=== PATIENT | male | born 1960 | race Caucasian/White ===

== ENCOUNTER 2018-08-23 13:08 | Outpatient (CLI) | payer OTHER | END 2018-08-23 13:09 | disposition home or self-care (01) | LOC: C.PAT 13:08 | DX: L98.9 Disorder of the skin and subcutaneous tissue, unspecified (principal) ==

== ENCOUNTER 2018-08-24 11:28 | Day surgery (SDC) | payer OTHER ==
[2018-08-23 13:16] VITALS: BMI 31.6
[2018-08-24 12:02] VITALS: RESP 18
[2018-08-24] MEDS ORDERED: Lidocaine/Epinephrine 1% 1:100000 10 ML IJ ONE (12:59)
--- NOTE | 2018-08-24 13:23 | PCM.SURG1 ---
Surgeon's Initial Post Op Note - Surgeon's Notes Surgeon: Davie Galeas Microfiche Duplicator: none Type of Anesthesia: Local Anesthesia Administered By: Davie Galeas Pre-Operative Diagnosis: scalp mass Operative Findings: pigmented subcuatneous mass Post-Operative Diagnosis: scalp mass Operation Performed: excision scalp mass Specimen/Specimens Removed: scalp mass Estimated Blood Loss: EBL {In ML}: 1 Blood Products Given: N/A Drains Used: No Drains Post-Op Condition: Good Date of Surgery/Procedure: 08/24/18 Time of Surgery/Procedure: 13:23
[2018-08-24 13:44] VITALS: BP 126/77; PULSE 54; TEMP 97.1; O2SAT 100
--- NOTE | 2018-08-29 22:31 | OP ---
PROCEDURE DATE: 08/24/2018 SURGEON: Pinky Galeas MD ANESTHESIA: Local 1% lidocaine with epinephrine. PREOPERATIVE DIAGNOSIS: Scalp mass. POSTOPERATIVE DIAGNOSIS: Scalp mass. PROCEDURE: Excision of Scalp mass. DESCRIPTION OF OPERATION: With the patient in the supine position, the scalp was prepped and draped in the usual sterile manner. The patient was noted to have a small subcutaneous nodule with some dark overlying pigmentation in the anterior right portion of the scalp without an obvious central punctum. The skin surrounding this lesion was infiltrated with 1% lidocaine with epinephrine and an elliptical incision was made through the overlying skin surrounding the mass and the mass was sharply dissected free of the surrounding subcutaneous tissue. The operative site was examined for hemostasis and closure was performed with 2 subcuticular sutures of dissolving plain gut followed by Dermabond. The patient tolerated the procedure well and transferred back to same-day surgery in stable condition. Pinky Galeas MD
== END 2018-08-24 13:44 | disposition home or self-care (01) ==
LOC: C.SDS 11:28
PROVIDERS: ATTEND Specialist
DX: D23.4 Other benign neoplasm of skin of scalp and neck (principal)